=== PATIENT | female | born 2000 | race Hispanic/Latino ===

== ENCOUNTER 2023-09-08 05:30 | Inpatient (IN) | payer MEDICAID, OTHER ==
[2023-09-08 05:55] VITALS: BMI 40.2
[2023-09-08] MEDS ORDERED: Ondansetron PF 4 MG/2 ML Vial IVP PRN ×4 (06:59→15:59)
[2023-09-08] MEDS ORDERED: Tranexamic Acid 1,000 MG/10 ML VIAL IVP PRN (06:59)
[2023-09-08] MEDS ORDERED: Acetaminophen 500 MG TAB PO PRN (06:59)
[2023-09-08] MEDS ORDERED: hydrALAZINE 20 MG/ML VIAL SLOW IVP PRN ×2 (06:59→15:59)
[2023-09-08] MEDS ORDERED: Ibuprofen 800 MG TAB PO PRN (06:59)
[2023-09-08] MEDS ORDERED: fentaNYL 50 mcg/mL 1 mL Vial SLOW IVP PRN ×2 (06:59→14:40)
[2023-09-08] MEDS ORDERED: Promethazine HCl 25 MG/ML VIAL IM PRN ×3 (06:59→15:59)
[2023-09-08] MEDS ORDERED: Lidocaine 1% (PF) 30 ML VIAL SC PRN (06:59)
[2023-09-08] MEDS ORDERED: Lactated Ringer's 1,000 ML IV SCH (06:59)
[2023-09-08] MEDS ORDERED: Methylergonovine 0.2 MG/ML VIAL IM PRN (06:59)
[2023-09-08] MEDS ORDERED: Misoprostol 200 MCG TAB PR PRN (06:59)
[2023-09-08] MEDS ORDERED: Carboprost 250 MCG/ML AMP IM PRN (06:59)
[2023-09-08] MEDS ORDERED: HYDROcodone/Acetaminophen 5/325 mg Tablet PO PRN (06:59)
[2023-09-08] MEDS ORDERED: Oxytocin 30 units/NS 500 ML 500 ML IV SCH ×2 (06:59)
[2023-09-08] MEDS ORDERED: Diphenoxylate HCl/Atropine Tablet PO PRN (06:59)
[2023-09-08] MEDS: Penicillin G Potassium 5 MILL.UNITS VIAL ONE (07:26)
[2023-09-08] MEDS ORDERED: Penicillin G Potassium 5 MILL.UNITS in Sodium Chloride 0.9% 100 ML IVPB SCH ×2 (07:30→12:00)
[2023-09-08 07:40] LABS: Hematocrit 34.8 % (34.9-44.5); Hemoglobin 12.6 g/dL (12.0-15.5); Mean Corpuscular HGB CONC 36.2 g/dL (32.0-36.0); Mean Corpuscular Hemoglobin 34.1 pg (27.0-33.0); Mean Corpuscular Volume 94.1 fL (81.6-98.3); Mean Platelet Volume 10.9 fL (7.4-10.4); Platelet Count 218 10x3/uL (150-450); RBC Distribution Width 12.8 % (11.5-14.5); White Blood Cell (WBC) Count 8.5 10x3/uL (3.5-10.5)
[2023-09-08 08:08] LABS: HBsAg Index 0.17 S/CO (0-0.99); Hep B Surf Ag - L&D Non-Reactive S/CO (NonReactive)
[2023-09-08 08:10] LABS: Syphilis Antibody Nonreactive (Nonreactive); Syphilis Antibody Index 0.04 S/CO (<1.00 Non-Reactive)
[2023-09-08] MEDS: Oxytocin 30 units/NS 500 ML 500 ML IV SCH (12:01)
[2023-09-08] MEDS: Penicillin G 2.5 MILL.units 2.5 MILL.UNITS in Premix 1 BAG IVPB SCH (12:03)
[2023-09-08 14:03] LABS: Analyzer IN Cardio CS NICU; RapidComm Collect By cbn
[2023-09-08 14:10] LABS: Analyzer IN Cardio CS NICU; RapidComm Collect By CBN; pH (Cord, venous) 7.238 (7.250-7.350)
[2023-09-08] MEDS ORDERED: Ketorolac Tromethamine 30 MG (1 mL) VIAL IVP PRN (14:40)
[2023-09-08] MEDS ORDERED: Naloxone HCl 0.4 mg/ml Vial IVP PRN ×2 (14:40)
[2023-09-08] MEDS ORDERED: Meperidine HCl/PF 25 MG (1 mL) VIAL SLOW IVP PRN (14:40)
[2023-09-08] MEDS ORDERED: diphenhydrAMINE 50 MG/ML VIAL IVP PRN (14:40)
[2023-09-08] MEDS ORDERED: Naloxone HCl 0.4 mg/ml Vial IV PRN (14:40)
[2023-09-08] MEDS ORDERED: HYDROmorphone 0.5 MG/0.5 ML SYRINGE SLOW IVP PRN (14:40)
[2023-09-08] MEDS ORDERED: Moisturizing Cream (Eucerin) 113 GM JAR TOP PRN (14:40)
[2023-09-08] MEDS ORDERED: Communication Order-Pharmacy FS SCH (14:45)
[2023-09-08] MEDS ORDERED: Ketorolac Tromethamine 30 MG (1 mL) VIAL IVP SCH (14:45)
[2023-09-08] MEDS ORDERED: Lanolin Ointment 7 GM TUBE TOP PRN (15:59)
[2023-09-08] MEDS ORDERED: diphenhydrAMINE 25 MG CAP PO PRN (15:59)
[2023-09-08] MEDS ORDERED: Boostrix 0.5 ML (Tdap) VIAL (>/=7 yrs of age) IM ONE (15:59)
[2023-09-08] MEDS ORDERED: Bisacodyl 10 MG SUPP PR PRN (15:59)
[2023-09-08] MEDS ORDERED: Simethicone Chewable 80 MG TAB PO PRN (15:59)
[2023-09-08] MEDS: Ondansetron PF 4 MG/2 ML Vial ONE ×2 (16:04→16:05)
[2023-09-08] MEDS: CEFAZOLIN 2 GM VIAL ONE (16:04)
[2023-09-08] MEDS: Morphine PF 10 MG/10 ML VIAL ONE (16:04)
[2023-09-08] MEDS: Azithromycin 500 MG VIAL ONE (16:04)
[2023-09-08] MEDS: ePHEDrine Sulfate 50 MG/10 ML VIAL ONE (16:04)
[2023-09-08] MEDS: Phenylephrine 40 MG/NS 250 ML 250 ML ONE (16:04)
[2023-09-08] MEDS: Ketorolac Tromethamine 30 MG (1 mL) VIAL ONE (16:05)
[2023-09-08] MEDS: Oxytocin 10 UNITS/ML VIAL ONE ×2 (16:05)
[2023-09-08] MEDS: Dexamethasone 4 mg/ml Vial ONE (16:05)
[2023-09-08] MEDS: Ketorolac Tromethamine 30 MG (1 mL) VIAL IVP SCH (22:00)
[2023-09-08] MEDS: Docusate 100 MG CAP PO SCH (22:00)
[2023-09-08] MEDS: Ferrous Sulfate 325 MG TAB PO SCH (22:00)
[2023-09-09 03:24] LABS: Hematocrit 27.8 % (34.9-44.5); Hemoglobin 9.4 g/dL (12.0-15.5); Mean Corpuscular HGB CONC 33.8 g/dL (32.0-36.0); Mean Corpuscular Hemoglobin 32.4 pg (27.0-33.0); Mean Corpuscular Volume 95.9 fL (81.6-98.3); Mean Platelet Volume 10.3 fL (7.4-10.4); Platelet Count 199 10x3/uL (150-450); RBC Distribution Width 12.7 % (11.5-14.5); White Blood Cell (WBC) Count 12.1 10x3/uL (3.5-10.5)
[2023-09-09] MEDS: Prenatal Vitamin 1 TAB PO SCH (08:38)
[2023-09-09] MEDS ORDERED: Ondansetron ODT 4 MG TAB PO PRN (09:33)
[2023-09-09] MEDS: Ibuprofen 800 MG TAB PO SCH (09:51)
[2023-09-09] MEDS: HYDROcodone/Acetaminophen 5/325 mg Tablet PO PRN ×2 (13:18→17:04)
[2023-09-11 08:25] VITALS: BP 149/65; TEMP 98.3
== END 2023-09-11 12:50 | disposition home or self-care (01) | DRG 788 ==
LOC: CSHLD 05:35 → CSHPP 16:46
PROVIDERS: ADMIT Family Medicine; ATTEND Family Medicine
PROC: 10D00Z1 Extraction of Products of Conception, Low, Open Approach (ICD-10-PCS; principal; 2023-09-08)
PROC: 10H07YZ Insertion of Other Device into Products of Conception, Via Natural or Artificial Opening (ICD-10-PCS; 2023-09-08)
DX: O99.824 Streptococcus B carrier state complicating childbirth (principal); O76 Abnormality in fetal heart rate and rhythm complicating labor and delivery; O48.0 Post-term pregnancy; O77.0 Labor and delivery complicated by meconium in amniotic fluid; Z37.0 Single live birth; Z3A.40 40 weeks gestation of pregnancy
CPT/HCPCS: 36415; 51702; 82805; 85027; 86780; 86850; 86900; 86901; 87340; J1100; J1885; J2274; J2405; J2540; J2590